=== PATIENT | female | born 1995 | race Two or more races ===

== ENCOUNTER 2016-09-10 11:57 | Emergency (ER) | payer OTHER ==
[2016-09-10 12:21] VITALS: BP 96/70; PULSE 82; RESP 16; TEMP 98.1; O2SAT 95
[2016-09-10] MEDS ORDERED: predniSONE 20 MG TAB PO ONE (12:47)
[2016-09-10] MEDS ORDERED: IPRATROPIUM/ALBUTEROL 3 ML DEYVIAL IH ONE ×2 (12:47→13:43)
--- NOTE | 2016-09-10 12:49 | UCPHY ---
H & P Patient Type: New Chief Complaint Nursing Narrative: pt reports wheezing x months which increase with activity. denies pain or hx of asthma Time Seen by Provider: 09/10/16 12:31 HPI/ROS: CHIEF COMPLAINT: Wheezing History by patient HISTORY OF PRESENT ILLNESS: 21-year-old woman presents complaining of 1 month of intermittent wheezing and dry cough and shortness of breath with exertion. Patient states she has no prior history of asthma but feels like she is having asthma. She has not taken anything for this yet. She does smoke daily marijuana. She denies cigarette use. She denies any fever, chills, nausea or vomiting. The symptoms have gotten worse over the past few days from her to seek medical attention. She denies any chest pain. She has no prior hospitalizations. She denies any history of allergies. REVIEW OF SYSTEMS: As in HPI, and all other systems reviewed and are negative Source: Patient - Personal History LMP (Females 10-55): 22-28 Days Ago Current Tetanus/Diphtheria Vaccine: No Current Tetanus Diphtheria and Acellular Pertussis (TDAP): No - Medical/Surgical History PMH: General Appearance: Alert, speaking full sentences. Eyes: Pupils equal and round no pallor or injection. ENT, Mouth: Mucous membranes moist. Respiratory: Normal, effort, There are no retractions, bilateral inspiratory and expiratory wheezes Cardiovascular: Regular rate and rhythm. Gastrointestinal: Abdomen is soft and nontender, no masses, bowel sounds normal. Neurological: Awake, alert and oriented x 3, no pronator drift, normal gait, no pronator drift Skin: Warm and dry, no rashes. Musculoskeletal: Neck is supple nontender. Extremities are symmetrical, full range of motion. Psychiatric: Patient has normal affect, there is no agitation. Hx Asthma: No Hx Chronic Respiratory Disease: No Hx Diabetes: No Hx Cardiac Disease: No Hx Renal Disease: No Hx Cirrhosis: No Hx Alcoholism: No Hx HIV/AIDS: No Hx Splenectomy or Spleen Trauma: No Other PMH: denies - Family History Significant Family History: No pertinent family hx - Social History Smoking Status: Never smoked - Physical Exam Exam: General Appearance: Alert, speaking full sentences. Eyes: Pupils equal and round no pallor or injection. ENT, Mouth: Mucous membranes moist. Respiratory: Normal, effort, There are no retractions, lungs with diffuse wheezes inspiratory and expiratory throughout. Cardiovascular: Regular rate and rhythm. Gastrointestinal: Abdomen is soft and nontender, no masses, bowel sounds normal. Neurological: Awake, alert and oriented x 3, no pronator drift, normal gait, no pronator drift Skin: Warm and dry, no rashes. Musculoskeletal: Neck is supple nontender. Extremities are symmetrical, full range of motion. Psychiatric: Patient has normal affect, there is no agitation. Constitutional: Initial Vital Signs Temperature (C) 36.7 C 09/10/16 12:19 Heart Rate 82 09/10/16 12:19 Respiratory Rate 16 09/10/16 12:19 Blood Pressure 96/70 L 09/10/16 12:19 O2 Sat (%) 95 09/10/16 12:19 O2 Delivery Mode Room Air Allergies/Adverse Reactions: No Known Allergies Allergy (Unverified 09/10/16 12:19) Home Medications: Medication Instructions Recorded Albuterol [Proventil Inhaler HFA 1 - 2 puffs IH Q4H #1 mdi 09/10/16 (*)] predniSONE 40 mg PO DAILY #5 tablet 09/10/16 Medical Decision Making - Diagnostics Imaging Results: Imaging Impressions Chest X-Ray 09/10/16 13:43 Impression: Minimal airways disease. No pneumonia or effusion. Imaging: I viewed and interpreted images myself ED Course/Re-evaluation: 21-year-old woman has no prior history of asthma but regular smoking presents with 1 month of intermittent wheezing and shortness of breath. Exam here shows diffuse wheezes but no evidence of hypoxia or respiratory distress. Chest x- ray showed nothing acute. Patient was started on oral steroids and given DuoNeb x2 with significant improvement. She is referred for primary care and will be given a 5 day prednisone burst and albuterol inhaler. - Data Points Medications Given: Discontinued Medications Albuterol/Ipratropium (Duoneb) 3 ml IH EDNOW ONE Stop: 09/10/16 12:48 Last Admin: 09/10/16 13:01 Dose: 3 ml Albuterol/Ipratropium (Duoneb) 3 ml IH EDNOW ONE Stop: 09/10/16 13:44 Last Admin: 09/10/16 13:58 Dose: 3 ml Prednisone (Prednisone) 60 mg PO EDNOW ONE Stop: 09/10/16 12:48 Last Admin: 09/10/16 13:01 Dose: 60 mg Departure - Departure Disposition: Home, Routine, Self-Care Condition: Good Instructions: Asthma (ED) Additional Instructions: You were seen by Dr. Devora Bravo today. Return for any worsening or new concerns. Use albuterol inhaler as needed for coughing and wheezing. Take steroids for the next 5 days. Please establish a primary care physician to develop ongoing asthma plan treatment. Stop smoking marijuana! Referrals: NONE *PRIMARY CARE P,. [Primary Care Provider] - As per Instructions Prescriptions: Albuterol [Proventil Inhaler HFA (*)] 1 - 2 puffs IH Q4H #1 mdi predniSONE 40 mg PO DAILY #5 tablet - PQRS PQRS Measurement: NA
[2016-09-10] MEDS ORDERED: HYDROGEN PEROXIDE 236 ML BOTTLE TP ONE (12:57)
== END 2016-09-10 14:48 | disposition home or self-care (01) ==
LOC: CED 11:57
DX: J45.909 Unspecified asthma, uncomplicated (principal); F12.10 Cannabis abuse, uncomplicated
CPT/HCPCS: 71020-PO; 99204-PO; G0463-PO

== ENCOUNTER 2017-11-16 04:18 | Emergency (ER) | payer OTHER ==
--- NOTE | 2017-11-16 04:29 | EDPHY ---
H & P Stated Complaint: SOB X 2 DAYS Time Seen by Provider: 11/16/17 04:29 HPI/ROS: HPI CHIEF COMPLAINT: Wheezing, cough HISTORY OF PRESENT ILLNESS: Patient very pleasant 22-year-old female, she has a history of asthma, she does have an inhaler over the past 24-48 hours she has had increasing shortness of breath with wheezing and a nonproductive cough. She denies any fever. She denies any chest pain. She states 3 years ago she moved here from [place]. She does smoke tobacco. However patient recently started smoking this past weekend. After smoke she began having wheezing and coughing. No hemoptysis. No pleuritic pain. She does take oral contraceptive. Past Medical History: Denies significant medical history except for asthma Past Surgical History: Denies significant surgical history Social History: Denies daily use of drugs, does smoke tobacco, denies alcohol Family History: Noncontributory ROS REVIEW OF SYSTEMS: A comprehensive 10 point review of systems is otherwise negative aside from elements mentioned in the history of present illness. Exam Constitutional upon arrival wheezing. Nontoxic in no acute distress triage nursing summary reviewed, vital signs reviewed, awake/alert. Eyes normal conjunctivae and sclera, EOMI, PERRLA. HENT normal inspection, atraumatic, moist mucus membranes, no epistaxis, neck supple/ no meningismus, no raccoon eyes. Respiratory wheezing throughout all lung barron. Otherwise good air movement. No distress. Bronchitic sounding cough on exam Cardiovascular rate normal, regular rhythm, no murmur, no edema, distal pulses normal. Gastrointestinal soft, non-tender, no rebound, no guarding, normal bowel sounds, no distension, no pulsatile mass. Genitourinary no CVA tenderness. Musculoskeletal no midline vertebral tenderness, full range of motion, no calf swelling, no tenderness of extremities, no meningismus, good pulses, neurovascularly intact. Skin pink, warm, & dry, no rash, skin atraumatic. Neurologic awake, alert and oriented x 3, AAOx3, moves all 4 extremities equally, motor intact, sensory intact, CN II-XII intact, normal cerebellar, normal vision, normal speech. Psychiatric normal mood/affect. Heme/Lymph/Immune no lymphadenopathy. Differential Diagnosis: Includes but is not limited to in a particular order acute bronchitis, reactive airway disease, asthma, viral syndrome, pneumonia, tobacco abuse, doubt pulmonary embolism Medical Decision Making: Plan for this patient she has wheezing throughout all lung barron however good air movement, not hypoxic in no acute distress. Will proceed with DuoNeb breathing treatment, prednisone 60 mg p. O. And chest x-ray and re-evaluate. Re-evaluation: ED x-ray chest one view negative for acute cardiopulmonary disease specifically no pneumonia. Bronchitis present. Image interpreted by myself. [id number]: Patient re-evaluated after DuoNeb breathing treatment feeling much better. Good air movement. She feels better after the DuoNeb. Room air saturation 97% on room air. Not tachycardic. Wheezing has improved. Source: Patient - Personal History LMP (Females 10-55): 22-28 Days Ago Current Tetanus Diphtheria and Acellular Pertussis (TDAP): Yes - Medical/Surgical History Hx Asthma: Yes Hx Chronic Respiratory Disease: No Hx Diabetes: No Hx Cardiac Disease: No Hx Renal Disease: No Hx Cirrhosis: No Hx Alcoholism: No Hx HIV/AIDS: No Hx Splenectomy or Spleen Trauma: No Other PMH: denies - Social History Smoking Status: Never smoked Constitutional: Initial Vital Signs Temperature (C) 37.0 C 11/16/17 04:24 Heart Rate 101 H 11/16/17 04:24 Respiratory Rate 18 11/16/17 04:24 Blood Pressure 136/90 H 11/16/17 04:24 O2 Sat (%) 96 11/16/17 04:24 O2 Delivery Mode Room Air Allergies/Adverse Reactions: No Known Allergies Allergy (Verified 11/16/17 04:24) Home Medications: Medication Instructions Recorded RX: Albuterol [Proventil Inhaler 1 - 2 puffs IH Q4H #1 mdi 09/10/16 HFA (*)] RX: predniSONE 60 mg PO DAILY #15 tab 11/16/17 Medical Decision Making - Data Points Medications Given: Discontinued Medications Albuterol Sulfate (Proventil Inh Prepack) 1 mdi TAKEHOME EDNOW ONE Stop: 11/16/17 04:39 Last Admin: 11/16/17 04:49 Dose: 1 mdi Albuterol/Ipratropium (Duoneb) 3 ml IH EDNOW ONE Stop: 11/16/17 04:35 Last Admin: 11/16/17 04:48 Dose: 3 ml Prednisone (Prednisone) 60 mg PO EDNOW ONE Stop: 11/16/17 04:35 Last Admin: 11/16/17 04:48 Dose: 60 mg Departure - Departure Disposition: Home, Routine, Self-Care Clinical Impression: Acute bronchitis Condition: Good Instructions: Albuterol (By breathing), Acute Bronchitis (ED) Additional Instructions: 1. 2 puffs of her inhaler every 4 hr as needed for wheezing shortness of breath. 2. Return emergency room if you have worsening shortness of breath or cannot catch her breath. 3. Prednisone as prescribed 4. Do not smoke 5. Return if worse. Referrals: NONE *PRIMARY CARE P,. [Primary Care Provider] - As per Instructions Prescriptions: RX: predniSONE 60 mg PO DAILY #15 tab
[2017-11-16] MEDS ORDERED: IPRATROPIUM/ALBUTEROL 3 ML DEYVIAL ONE (04:32)
[2017-11-16] MEDS ORDERED: IPRATROPIUM/ALBUTEROL 3 ML DEYVIAL IH ONE ×2 (04:34→04:55)
[2017-11-16] MEDS ORDERED: predniSONE 20 MG TAB PO ONE (04:34)
[2017-11-16] MEDS ORDERED: ALBUTEROL INH PREPACK MDI TAKEHOME ONE (04:38)
[2017-11-16 05:17] VITALS: BP 124/72
== END 2017-11-16 05:17 | disposition home or self-care (01) ==
DX: J20.9 Acute bronchitis, unspecified (principal); J45.909 Unspecified asthma, uncomplicated; Z72.0 Tobacco use
CPT/HCPCS: J7512